=== PATIENT | male | born 1980 | race Caucasian/White ===

== ENCOUNTER → 2018-04-12 | Outpatient (CLI) | payer OTHER ==
[~2018-04-12] MED LIST: CARI350T PO; CYCL-259 PO; DIAZ5TAB PO; DOXY100T10 PO; OXYC15TA PO; OXYC20TA2 PO; OXYC5TAB3 PO; RELAFEN PO
== END | disposition home or self-care (01) ==
LOC: CFH 08:48
PROVIDERS: ATTEND Physician Assistant Medical
DX: M54.5 Low back pain (principal)
CPT/HCPCS: 72110

== ENCOUNTER 2021-04-21 15:11 | Observation (INO) | payer OTHER ==
[~2021-04-21] VITALS: Ht 182.9 cm; Wt 112.8 kg
[~2021-04-21 15:11] MED LIST changes: -CYCL-259 PO; +CYCL10TA2 PO; -DOXY100T10 PO; +DOXY100T23 PO; -OXYC15TA PO; +OXYC15TA3 PO; -OXYC5TAB3 PO; +OXYC5TAB98 PO
--- NOTE | 2021-04-21 15:13 | NUR ---
BIB EMS FROM HOME AFTER PT STATES HE WAS HAVING CHRONIC BACK AND DEICED TO TAKE A SHOT OF TCH BELIEVING THAT HE WAS SUPPOSED TO TAKE THE WHOLE THING. PT STATES HE THEN READ THE LABEL AND DISCOVERED HE WAS SUPPOSED TO ONLY TAKE A SIP. PT THEN SAT DOWN AND HAD A SYNCOPAL EPISODE. PT NOTED TO BE TACHY AT THE 150'S AND SATING MID 80'S RA PLACED ON 4L NC. PT STATES HX ARRYTHMIA AND RANDOMLY BECOMING SINUS TACH. PT VS [employer] BS 190, 80'S% RA, ST 130-150. GIVEN 4 MG ZOFRAN [employer]. PT PLACED ON MONITORS. ALL OTHER VSS EXCEPT HR. EKG COMPLETED.
[2021-04-21] MEDS ORDERED: SODIUM CHLORIDE 0.9% 1,000ML IVBOLUS ONE ×2 (15:30→17:00)
[2021-04-21] MEDS ORDERED: SODIUM CHLORIDE FLUSH 10ML SYR IVF ONE (15:30)
[2021-04-21] MEDS ORDERED: LORazepam 2 MG/ML, 1ML ONE (15:31)
--- NOTE | 2021-04-21 15:41 | NUR ---
PT HAD SZ LIKE ACTIVITY FOLLOWED BY AGGRESSIVE BEHAVIOR. ERP DR. CIFUENTES AT BEDSIDE ASSISTING W/ PT AGGRESSIVE BEHAVIOR. PT MEDICATED W/ 2 MG IV ATIVAN PER ERP DR. CIFUENTES. PT NOW CALM AND SLEEPING. MONITORS REMAIN IN PLACE. ERP DR. CIFUENTES IN ROOM SPEAKING W/ FAMILY. CURTAIN TO REMAIN OPEN BY NURSES STATION FOR CLOSE MONITORING BY THIS RN.
[2021-04-21 15:48] LABS: BASOPHILS % (AUTO) 1 % (0-1); EOSINOPHILS % (AUTO) 0 % (1-7); LYMPHOCYTES % (AUTO) 19 % (22-44); MEAN CORPUSCULAR HEMOGLOBIN 30.3 pg (27.5-34.5); MEAN CORPUSCULAR HGB CONC 34.1 g/dL (33.2-36.2); MEAN PLATELET VOLUME 9.6 fL (7.4-10.4); MONOCYTES % (AUTO) 6 % (2-9); NEUTROPHILS % (AUTO) 75 % (42-75); PLATELET COUNT 199 x10^3/uL (130-400); RED BLOOD COUNT 5.42 x10^6/uL (4.38-5.82); RED CELL DISTRIBUTION WIDTH 14.8 % (9.4-14.8)
--- NOTE | 2021-04-21 15:50 | NUR ---
BREAK RN: PT RESTING ON GURNEY (MILDLY RESTLESS), NAD WITH EQUAL CHEST RISE/FALL, VS RECHECK AFTER IVF COMPLETED, NO NEEDS AT THIS TIME, FAMILY AT BS, CALL LIGHT WITHIN REACH.
[2021-04-21 15:59] LABS: ALBUMIN 4.3 g/dL (3.4-5.0); ANION GAP 13 mmol/L (5-15); CALCIUM 9.6 mg/dL (8.5-10.1); CHLORIDE 100 mmol/L (98-107)
[2021-04-21] MEDS ORDERED: LORazepam 2 MG/ML, 1ML IVPush ONE (16:00)
[2021-04-21 16:02] LABS: ALANINE AMINOTRANSFERASE 39 U/L (12-78); ALKALINE PHOSPHATASE 85 U/L (45-117); BILIRUBIN,TOTAL 0.4 mg/dL (0.2-1.0); TOTAL PROTEIN 8.3 g/dL (6.4-8.2)
--- NOTE | 2021-04-21 16:43 | NUR ---
IVF INFUSED. HR REMAINS ELEVATED AT 125. ERP DR. CIFUENTES NOTIFIED.
--- NOTE | 2021-04-21 17:31 | NUR ---
PT SLEEPING ON GURGENARO. LON. VSS. FAMILY REMAINS AT BEDSIDE.
[2021-04-21 17:57] LABS: MICROSCOPIC NOT IND
--- NOTE | 2021-04-21 17:58 | NUR ---
PT MORE AWAKE AND ALERT. CONVERSING W/ FAMILY. AOX4.
--- NOTE | 2021-04-21 18:25 | NUR ---
PT RESTING ON GURNEY. NADN. THOMASON.
[2021-04-21 18:32] LABS: AMPHETAMINE SCREEN, URINE Negative (Negative); BARBITURATE SCREEN, URINE Negative (Negative); BENZODIAZEPINE SCREEN, URINE Negative (Negative); CANNABINOID SCREEN, URINE Positive (Negative); COCAINE SCREEN, URINE Negative (Negative); METHADONE SCREEN, URINE Negative (Negative); OPIATE SCREEN, URINE Positive (Negative)
--- NOTE | 2021-04-21 18:51 | NUR ---
PT PROVIDED W/ MEAL TRAY. PT RESTING ON GURNEY. NADN. VSS ON O2.
--- NOTE | 2021-04-21 19:26 | NUR ---
PT RESTING ON GURNEY. NADN. THOMASON.
--- NOTE | 2021-04-21 19:55 | NUR ---
PT AMBULATED IN HALLWAY ON RA. PT NOTED TO BE 980-81% RA WHILE AMBULATING. PT DENIES ANY SX. DENIES DIZZINESS/LIGHTHEADEDNESS. PT BACK TO ROOM .PLACED AGAIN ON 2L NC NOW SATING 92-93%. ERP DR. CIFUENTES NOTIFIED. NEW ORDERS PLACED.
[2021-04-21] MEDS ORDERED: HYDR-826 PO (20:03)
[2021-04-21] MEDS ORDERED: ESCI5TAB8 PO (20:03)
[2021-04-21] MEDS ORDERED: PREG150C PO (20:03)
[2021-04-21] MEDS ORDERED: OXYC10TA6 PO (20:03)
[2021-04-21] MEDS ORDERED: BUSP15TA PO (20:03)
[2021-04-21] MEDS ORDERED: METH-640 PO (20:03)
--- NOTE | 2021-04-21 20:11 | NUR ---
Pt ambulatory with steady gait to restroom
--- NOTE | 2021-04-21 20:47 | NUR ---
PT AND FAMILY AWARE OF POC FOR CTA AND ARE AGREEABLE. PT RESTING ON GURNEY. NADN. THOMASON.
--- NOTE | 2021-04-21 20:57 | NUR ---
Report from Aleah CHOE
--- NOTE | 2021-04-21 20:58 | NUR ---
REPORT GIVEN TO CLIFF NIXON RN.
[2021-04-21] MEDS ORDERED: OMNIPAQUE 350 MG/ML, 75ML BOTTLE ONE (21:11)
--- NOTE | 2021-04-21 22:20 | NUR ---
hospitalist at bedside to discuss POC
--- NOTE | 2021-04-21 22:29 | NUR ---
Family made aware of room assignment for pt
--- NOTE | 2021-04-21 22:30 | NUR ---
Report to Aissatou CHOE
[2021-04-21 22:52] VITALS: BP 138/82
[2021-04-21] MEDS ORDERED: ZOLPIDEM 5MG TABLET PO PRN (23:00)
[2021-04-21] MEDS ORDERED: GUAIFENESIN/DM 200-20MG, 10ML UDC PO PRN (23:00)
[2021-04-21] MEDS ORDERED: ENALAPRILAT 1.25 MG/ML, 2ML IVPush PRN (23:00)
[2021-04-21] MEDS ORDERED: DOCUSATE 100 MG CAPSULE PO PRN (23:00)
[2021-04-21] MEDS ORDERED: ACETAMINOPHEN 325 MG TABLET PO PRN (23:00)
[2021-04-21] MEDS ORDERED: ONDANSETRON 2MG/ML, 2ML IVPush PRN (23:00)
[2021-04-21] MEDS ORDERED: morphine SULFATE 10 MG/ML, 1ML IVPush PRN (23:00)
[2021-04-21] MEDS: METHOCARBAMOL 750 MG TABLET PO SCH (23:43)
[2021-04-21] MEDS: PREGABALIN 150 MG CAPSULE PO SCH (23:43)
[2021-04-21 23:44] LABS: TROPONIN I < 0.015 ng/mL (0.000-0.045)
[2021-04-21] MEDS: SODIUM CHLORIDE 0.9% 1,000 ML IV SCH (23:44)
[2021-04-21] MEDS: OXYcodone IR 5MG TABLET PO PRN (23:44)
[2021-04-22 02:05] VITALS: BP 129/82
[2021-04-22] MEDS: OXYcodone IR 5MG TABLET PO PRN ×4 (04:05→16:20)
[2021-04-22 05:44] LABS: BASOPHILS % (AUTO) 0 % (0-1); EOSINOPHILS % (AUTO) 2 % (1-7); LYMPHOCYTES % (AUTO) 39 % (22-44); MEAN CORPUSCULAR HEMOGLOBIN 30.5 pg (27.5-34.5); MEAN PLATELET VOLUME 9.3 fL (7.4-10.4); MONOCYTES % (AUTO) 11 % (2-9); NEUTROPHILS % (AUTO) 49 % (42-75); PLATELET COUNT 126 x10^3/uL (130-400); RED BLOOD COUNT 4.95 x10^6/uL (4.38-5.82); RED CELL DISTRIBUTION WIDTH 15.1 % (9.4-14.8)
[2021-04-22 05:49] LABS: CHLORIDE 108 mmol/L (98-107)
[2021-04-22 05:58] LABS: ANION GAP 5 mmol/L (5-15); CALCIUM 9.5 mg/dL (8.5-10.1); CREATININE 1.01 mg/dL (0.7-1.3); TROPONIN I < 0.015 ng/mL (0.000-0.045)
[2021-04-22 06:53] VITALS: BP 105/69
[2021-04-22] MEDS: BUSPIRONE 5 MG TABLET PO SCH ×2 (07:56→16:20)
[2021-04-22] MEDS: PREGABALIN 150 MG CAPSULE PO SCH (07:57)
[2021-04-22] MEDS: METHOCARBAMOL 750 MG TABLET PO SCH ×2 (07:57→16:20)
[2021-04-22] MEDS: SODIUM CHLORIDE 0.9% 1,000 ML IV SCH ×2 (08:41→17:12)
[2021-04-22] MEDS ORDERED: PREGABALIN 150 MG CAPSULE PO SCH (09:00)
[2021-04-22] MEDS ORDERED: ESCITALOPRAM 10MG TABLET PO SCH (09:00)
[2021-04-22 12:47] VITALS: BP 108/67
== END 2021-04-22 17:30 | disposition home or self-care (01) ==
LOC: ED 20:10 → INTOOBSV 22:03 → EDIP 22:03 → 5SO 22:40
PROVIDERS: ADMIT Internal Medicine; ATTEND Hospitalist
DX: J96.01 Acute respiratory failure with hypoxia (principal); N17.9 Acute kidney failure, unspecified; G92 Toxic encephalopathy; D72.829 Elevated white blood cell count, unspecified; E87.1 Hypo-osmolality and hyponatremia; E87.2 Acidosis; R73.9 Hyperglycemia, unspecified; G89.29 Other chronic pain; M54.9 Dorsalgia, unspecified; E66.9 Obesity, unspecified; F41.8 Other specified anxiety disorders; F12.90 Cannabis use, unspecified, uncomplicated; Z79.891 Long term (current) use of opiate analgesic; Z87.891 Personal history of nicotine dependence; Z78.1 Physical restraint status; Z79.899 Other long term (current) drug therapy
CPT/HCPCS: 36415; 71045; 71275; 80048; 80053; 80307; 80320; 81003; 83036; 84484; 85025; 85379; 93005; 93306; 96361; 96374; 97161; 99291; G0378; J2060; J7030; Q0177; Q9967; G0480